=== PATIENT | female | born 1965 | race African-American/Black ===

== ENCOUNTER 2017-09-26 17:03 | Emergency (ER) | payer MEDICAID ==
[~2017-09-26] VITALS: Ht 167.6 cm; Wt 87.0 kg
[2017-09-26 17:10] VITALS: BP 116/83
[2017-09-26] MEDS ORDERED: CEPH-572 PO (17:58)
[2017-09-26] MEDS ORDERED: TRAM50TA2 PO (17:58)
== END 2017-09-26 18:10 | disposition home or self-care (01) ==
LOC: ER 17:05
DX: S93.602A Unspecified sprain of left foot, initial encounter (principal); L03.116 Cellulitis of left lower limb; Z88.5 Allergy status to narcotic agent; Z88.8 Allergy status to other drugs, medicaments and biological substances; W22.8XXA Striking against or struck by other objects, initial encounter; Y93.01 Activity, walking, marching and hiking; Y92.481 Parking lot as the place of occurrence of the external cause; Y99.8 Other external cause status
CPT/HCPCS: 73630; 99284

== ENCOUNTER 2019-10-26 10:19 | Emergency (ER) | payer MEDICAID ==
--- NOTE | 2019-10-26 11:29 | NUR ---
SEE CODE CHARTING.
--- NOTE | 2019-10-26 12:41 | NUR ---
Called [employer] regarding patients expiration and left a voice mail at approx. 1100. 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 [facility] [employer] was also called at 1117, and information given to Dajuan with reference # [id number]. Guerrreo called back at approx. 1220 for further information able the patients history and event. All questions notified.
== END 2019-10-26 13:19 | disposition expired ==
LOC: ER 10:19
DX: I46.9 Cardiac arrest, cause unspecified (principal); Z88.6 Allergy status to analgesic agent; Z88.5 Allergy status to narcotic agent
CPT/HCPCS: 92950; 94760; 99285